=== PATIENT | female | born 1955 | race Caucasian/White ===

== ENCOUNTER 2024-12-17 11:01 | Outpatient (CLI) | payer MEDICARE, SELFPAY ==
--- OUTSIDE RECORDS SUMMARY | 2024-12-17 11:42 | XMS_ITS | Encounter Summary ---
Author Organization [facility] Healthcare Address [address] [place] [address] Care Team Providers Care Neurodiagnostic Tech Name Role Phone Min Fowler MD Primary Care Provider + Encounter Details Date Type Department Care Team (Late st Contact Info) Description 07/15/2020 Telephone [facility] - Imaging [facility] [place] [address] Transcribed Order, Provider Social History Tobacco Use Types Packs/Day Years Used Date Smoking Tobacco: Never Comments Unknown Sex and Gender Information Value Date Recorded Sex Assigned at Not on file Legal Sex Female 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
--- OUTSIDE RECORDS SUMMARY | 2024-12-17 11:42 | XMS_ITS | Referral Summary ---
Author Organization [facility] Address [address] [place] [address] Care Team Providers Care Conduit Worker Name Role Phone Min Fowler MD Primary Care Provider + Allergies Active Allergy Reactions Criticality Noted Date Comments Naproxen Other (See comments) Low 03/02/2021 Caused stomach ulceration Medications clonazePAM (KlonoPIN) 0.5 mg tablet TAKE 2 TABLETS BY MOUTH IN THE MORNING AND 1 TABLET IN THE EVENING 270 tablet 1 06/18/2024 Active Active Problems Problem Noted Date Diagnosed Date Closed fracture of left proximal humerus 021 Anxiety 05/16/2019 Polyarthritis 05/16/2019 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 Her last large episode was 02/2021 with a fall that resulted in multiple fractures of her left arm in the setting of missing her medication over a holiday weekend. She has not had any falls in the past year, and has improved in remembering to take her medication on the weekends and vacation. Does does continue to have occasional smaller startle spells when she misses a dose of clonazepam. 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 She had one large episode this year (02/2021) with a fall that resulted in multiple fractures of her left arm in the setting of missing her medication over a holiday weekend. She has continued to struggle with remembering to take her medication on the weekend, and as a result has occasional smaller startle spells. She also has smaller spells at work functions which require her to remain standing for more than 30 minutes, despite pre-medicating with an extra 0.5mg of clonazepam. Since these smaller spells may occur even when taking clonazepam and they are relatively predictable, she may be a good candidate for Cognitive behavioral therapy to develop a strategy to help abort an on-coming spell. Recommendations: - Continue to take clonazepam 1mg/0.5mg; refilled today. - Referral to OT for possible CBT in the setting of work functions. We discussed this and she was willing to try it. 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 She has been working from home due the pandemic and has less stressors. However, in the setting of missed medication due to problems obtaining refills, she has had a few small spells. However, she has restarted clonazepam and her spells are now under control. She has no side effects from the clonazepam. She has anxiety about returning to normal life and being in crowds, likely exacerbated by the recent small spells. This will likely improve with time after having just had a couple of weeks without meds. Recommendation - continue clonazepam 1mg in the morning, 0.5mg at night - follow up in [address] Babb Immunizations Immunization Administration Dates Next Due Influenza, Quadrivalent, Hig h Dose, Preservative Free, Intrr 03/04/2020 Social History Tobacco Use Types Packs/Day Years Used Date Smoking Tobacco: Never Smokeless Tobacco: Never Alcohol Use Standard Drinks/Week Comments Not Currently 0 (1 standard drink = 0.6 oz pur e alcohol) AUDIT-C Answer Date Recorded Q1: How often do you have a drink containing alc ohol? 2-4 times a month 03/02/2021 Q2: How many drinks containi ng alcohol do you have on a typical day when you are drinking? 1 or 2 03/02/2021 Q3: How often do you have si x or more drinks on one occasion? 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 Gender Identity Female 07/18/2020 8:39 AM EARTH MOVING MACHINE OPERATOR Sexual Orientation Straight 07/18/2020 8: 39 AM EARTH MOVING MACHINE OPERATOR Last Filed Vital Signs Vital Sign Reading Time Taken Comments Blood Pressure 140/84 03/05/2021 1:05 PM CDT Pulse 93 03/05/2021 12:05 PM CDT Temperature 36.8 C (98.3 F) 03/05/2021 4:15 AM CDT Respiratory Rate 21 03/05/2021 12:05 PM CDT Oxygen Saturation 85% 03/05/2021 12:05 PM CDT Inhaled Oxygen Concentration - - Weight 70.3 kg (155 lb) 02/21/2021 5:53 PM CDT Height 152.4 cm (5') 02/21/2021 3:27 PM CDT Body Mass Index 30.27 02/21/2021 3:27 PM CDT Plan of Treatment Not on file Medical Devices Implanted Type Area Pumper Hand Device Identifier Shelf Expiration Date Model / Serial / Lot Vigil & Nephew/Richco/O rtho [id number] Hole Variable Angle Lock Low Profile Humerus - [id number] Implanted:Qty: 1 on 03/04/2021 by Elzbieta Vasques MD at [facility] Left: Humerus Vigil [employer] Nephew/Richco/Or tho [id number] / / Vigil [employer] Nephew/Richco/O rtho [id number] 2.7mm 4.5mm 22mm Self Retaining Screwdriver Self Tap Flat Head - [id number] Implanted:Qty: 2 on 03/04/2021 by Elzbieta Vasques MD at [facility] Left: Humerus V[employer]il [employer] Nephew/Richco/Or tho [id number] / / Vigil [employer] Nephew/Richco/O rtho [id number] Evos 3.5mm 50mm Self Tap Lock Screw Bone Sterile - [id number] Implanted:Qty: 1 on 03/04/2021 by Elzbieta Vasques MD at [facility] Left: Humerus Vigil [employer]hew/Richco/Or tho [id number] / / Vigil [employer]hew/Richco/O rtho [id number] Evos 3.5mm 24mm Self Tap Lock Screw Bone Sterile - [id number] Implanted:Qty: 1 on 03/04/2021 by Elzbieta Vasques MD at [facility] Left: Humerus V[employer]il [employer] Nephew/Richco/Or tho [id number] / / Vigil [employer]hew/Richco/O rtho [id number] Evos 3.5mm 22mm Self Tap Lock Screw Bone Sterile - [id number] Implanted:Qty: 1 on 03/04/2021 by Elzbieta Vasques MD at [facility] Left: Humerus V[employer]il [employer]hew/Richco/Or tho [id number] / / V[employer]il [employer] Nephew/Richco/O rtho [id number] Evos 3.5mm 20mm Self Tap Lock Screw Bone Sterile - [id number] Implanted:Qty: 1 on 03/04/2021 by Elzbieta Vasqeus MD at [facility] Left: Humerus V[employer]il [employer] Nephew/Richco/Or tho [id number] / / Vigil [employer]hew/Richco/O rtho [id number] Evos 3.5mm 28mm Self Tap Lock Screw Bone Sterile - [id number] Implanted:Qty: 1 on 03/04/2021 by Elzbieta Vasques MD at [facility] Left: Humerus V[employer]il [employer] Nephew/Richco/Or tho [id number] / / Vigil [employer] Nephew/Richco/O rtho [id number] Evos 3.5mm 46mm Self Tap Lock Screw Bone Sterile - [id number] Implanted:Qty: 2 on 03/04/2021 by Elzbieta Vasques MD at [facility] Left: Humerus V[employer]il [employer]hew/Richco/Or tho [id number] / / V[employer]il [employer]hew/Richco/O rtho [id number] Evos 3.5mm 44mm Self Tap Lock Screw Bone Sterile - [id number] Implanted:Qty: 3 on 03/04/2021 by Elzbieta Vasques MD at [facility] Left: Humerus V[employer]il [employer] Nephew/Richco/Or tho [id number] / / Vigil [employer] Nephew/Richco/O rtho [id number] Evos 3.5mm 48mm Self Tap Lock Screw Bone Sterile - [id number] Implanted:Qty: 1 on 03/04/2021 by Elzbieta Vasques MD at [facility] Left: Humerus V[employer]il [employer]hew/Richco/Or tho [id number] / / Vigil [employer] Nephew/Richco/O rtho [id number] Evos 3.5mm 36mm Self Tap Lock Screw Bone Sterile - [id number] Implanted:Qty: 1 on 03/04/2021 by Elzbieta Vasques MD at [facility] Left: Humerus V[employer]il [employer] Nephew/Richco/Or tho [id number] / / Vigil [employer] Nephew/Richco/O rtho [id number] Evos 3.5mm 32mm Self Tap Lock Screw Bone Sterile - [id number] Implanted:Qty: 1 on 03/04/2021 by Elzbieta Vasques MD at [facility] Left: Humerus V[employer]il [employer] Nephew/Richco/Or tho [id number] / / Vigil [employer] Nephew/Richco/O rtho [id number] Evos 3.5mm 22mm Self Tap Cortex Screw Bone Sterile - [id number] Implanted:Qty: 1 on 03/04/2021 by Elzbieta Vasques MD at [facility] Left: Humerus V[employer]il [employer] Nephew/Richco/Or tho [id number] / / Vigil [employer] Nephew/Richco/O rtho [id number] Evos 3.5mm 34mm Self Tap Cortex Screw Bone Sterile - [id number] Implanted:Qty: 1 on 03/04/2021 by Elzbieta Vasques MD at [facility] Left: Humerus V[employer]il [employer] Nephew/Richco/Or tho [id number] / / Vigil [employer] Nephew/Richco/O rtho [id number] 2.7mm 4.5mm 20mm Self Retaining Screwdriver Self Tap Flat Head - [id number] Implanted:Qty: 1 on 03/04/2021 by Elzbieta Vasques MD at [facility] Left: Humerus V[employer]il [employer] Nephew/Richco/Or tho [id number] / / Vigil [employer] Nephew/Richco/O rtho [id number] Evos 2.7mm 4.5mm 18mm Self Tap Cortex T8 Screw Bone Nonsterile - [id number] Implanted:Qty: 1 on 03/04/2021 by Elzbieta Vasques MD at [facility] Left: Humerus V[employer]il [employer] Nephew[employer]Richco/Or tho [id number] / / Insurance MEDICARE +[id number] (Work) [id number] [place] [address] [facility] CHOICE PLUS MEDICARE Advance Directives For more information, please contact: [phone] * Full Code (Latest Code Status on File) Date Activated Date Inactivated Comments 03/04/2021 11:02 PM 03/05/2021 7:47 PM Care Teams Conduit Worker Relationship Specialty Start Date End Date Min Fowler MD [place] [place] [address] PCP - General 09/24/15
--- OUTSIDE RECORDS SUMMARY | 2024-12-17 11:42 | XMS_ITS ---
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 Babb Current Treatment and Therapy Plans No current plan information found. Past Treatment and Therapy Plans No past plan information found. Lifetime Dose Tracking * Chemical Lifetime Dose Automatic Entry Manual Entr y Fluoro Time 1.37 minutes 1.37 minutes 0 minutes Air kerma at the reference point (Ka,r) 5.79 mGy 5 .79 mGy 0 mGy
--- OUTSIDE RECORDS SUMMARY | 2024-12-17 11:42 | XMS_ITS | Clinical Summary ---
Author Organization [facility] Address [address] [place] [address] Care Team Providers Care Bellman Captain Name Role Phone Min Fowler MD Primary [...] Assessment & Plan (01/12/2023 5:06 PM CDT): Nikita Carlin has long-standing hyperekplexia which has been [...] Assessment & Plan (12/23/2021 6:22 PM CDT): Nikita Carlin has long-standing hyperekplexia which has been [...] it. 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): Ms Carlin's hyperexplexia have been stable over [...] Hig h Dose, Preservative Free, Intrr 03/04/2020 Surgical History Surgery Date Site/Laterality Comments LAPAROSCOPIC BOWEL RESECTION 06/20/2015 - 06/19/2016 Medical History Medical History Date Comments History of gastrointestinal stromal tumor (GIST) Anemia Hyperekplexia Anxiety Family History Medical History Relation Name Comments Suicide Completion Father Stroke Mother Anesthesia problems Neg Hx Relation Name Status Comments Father Mother Social History Tobacco Use Types Packs/Day Years [...] on file Legal Sex Female 4:02 AM AIRBORNE M[employer] SUPERINTENDENT Gender Identity Female 07/18/2020 8:39 AM AIRBORNE M[employer]ION [employer] SUPERINTENDENT Sexual Orientation Straight 07/18/2020 8: 39 AM AIRBORNE M[employer] SUPERINTENDENT Obstetrics History Last Filed Vital Signs Vital Sign Reading [...] 02/21/2021 3:27 PM CDT Plan of Treatment Health Maintenance Due Date Last Done Comments Breast Cancer Screening-Mammogram 1954 Colon Cancer Screening-Colonoscopy 1954 Depression Screening 1954 Hepatitis C Screening 1954 Osteoporosis Screening-Bone Density Scan 1954 DTaP/Tdap/Td Vaccine (1 - Tdap) 1965 Hepatitis B Screening 1972 Zoster Vaccine (1 of 2) 2004 Well Visit 65+ 2019 Fall Risk Assessment 03/05/2022 03/05/2021 Pneumococcal vaccine 65+ (2 of 2 - PCV) 12/11/2022 0 12/11/2021 Covid-19 Vaccine (3 - 2023- season) 2024, 09/05/2020 Influenza Vaccine (Season Ended) 2025 03/04/20 20 Medical Devices Implanted Type Area Oil Expert Device Identifier Shelf Expiration Date Model / Serial / Lot Vigil & Nephew/Richco/O rtho [id number] 15 Hole Variable Angle Lock Low Profile Humerus - [id number] Implanted:Qty: 1 on 03/04/2021 by Elzbieta Vasques MD at [facility] Left: Humerus V[employer]il [employer]hew/Richco/Or tho [id number] / / Vigil [employer] Nephew/Richco/O rtho [id number] 2.7mm 4.5mm 22mm Self Retaining Screwdriver Self Tap Flat Head - [id number] Implanted:Qty: 2 on 03/04/2021 by Elzbieta Vasques MD at [facility] Left: Humerus V[employer]il [employer] Nephew/Richco/Or tho [id number] / / Vigil [employer] Nephew/Richco/O rtho [id number] Evos 3.5mm 50mm Self Tap Lock Screw Bone Sterile - [id number] Implanted:Qty: 1 on 03/04/2021 by Elzbieta Vasques MD at [facility] Left: Humerus V[employer]il [employer] Nephew/Richco/Or tho [id number] / / Vigil [employer] Nephew/Richco/O rtho [id number] Evos 3.5mm 24mm Self Tap Lock Screw Bone Sterile - [id number] Implanted:Qty: 1 on 03/04/2021 by Elzbieta Vasques MD at [facility] Left: Humerus V[employer]il [employer] Nephew/Richco/Or tho [id number] / / Vigil [employer] Nephew/Richco/O rtho [id number] Evos 3.5mm 22mm Self Tap Lock Screw Bone Sterile - [id number] Implanted:Qty: 1 on 03/04/2021 by Elzbieta Vasques MD at [facility] Left: Humerus V[employer]il [employer] Nephew/Richco/Or tho [id number] / / Vigil And Nephew/Richco/O rtho [id number] Evos 3.5mm 20mm Self Tap Lock Screw Bone Sterile - [id number] Implanted:Qty: 1 on 03/04/2021 by Elzbieta Vasques MD at [facility] Left: Humerus V[employer]il [employer] Nephew/Richco/Or tho [id number] / / Vigil [employer] Nephew/Richco/O rtho [id number] Evos 3.5mm 28mm Self Tap Lock Screw Bone Sterile - [id number] Implanted:Qty: 1 on 03/04/2021 by Elzbieta Vasques MD at [facility] Left: Humerus V[employer]il [employer] Nephew/Richco/Or tho [id number] / / Vigil [employer] Nephew/Richco/O rtho [id number] Evos 3.5mm 46mm Self Tap Lock Screw Bone Sterile - [id number] Implanted:Qty: 2 on 03/04/2021 by Elzbieta Vasques MD at [facility] Left: Humerus Vigil [employer] Nephew/Richco/Or tho [id number] / / Vigil [employer] Nephew/Richco/O rtho [id number] Evos 3.5mm 44mm Self Tap Lock Screw Bone Sterile - [id number] Implanted:Qty: 3 on 03/04/2021 by Elzbieta Vasques MD at [facility] Left: Humerus Vigil [employer] Nephew/Richco/Or tho [id number] / / Vigil [employer] Nephew/Richco/O rtho [id number] Evos 3.5mm 48mm Self Tap Lock Screw Bone Sterile - [id number] Implanted:Qty: 1 on 03/04/2021 by Elzbieta Vasques MD at [facility] Left: Humerus Vigil [employer] Nephew/Richco/Or tho [id number] / / Vigil [employer] Nephew/Richco/O rtho [id number] Evos 3.5mm 36mm Self Tap Lock Screw Bone Sterile - [id number] Implanted:Qty: 1 on 03/04/2021 by Elzbieta Vasques MD at [facility] Left: Humerus Vigil [employer] Nephew/Richco/Or tho [id number] / / Vigil [employer] Nephew/Richco/O rtho [id number] Evos 3.5mm 32mm Self Tap Lock Screw Bone Sterile - [id number] Implanted:Qty: 1 on 03/04/2021 by Elzbieta Vasques MD at [facility] Left: Humerus Vigil [employer] Nephew/Richco/Or tho [id number] / / Vigil [employer] Nephew/Richco/O rtho [id number] Evos 3.5mm 22mm Self Tap Cortex Screw Bone Sterile - [id number] Implanted:Qty: 1 on 03/04/2021 by Elzbieta Vasques MD at [facility] Left: Humerus Vigil [employer] Nephew/Richco/Or tho [id number] / / Vigil [employer] Nephew/Richco/O rtho [id number] Evos 3.5mm 34mm Self Tap Cortex Screw Bone Sterile - [id number] Implanted:Qty: 1 on 03/04/2021 by Elzbieta Vasques MD at [facility] Left: Humerus Vigil [employer] Nephew/Richco/Or tho [id number] / / Vigil [employer] Nephew/Richco/O rtho [id number] 2.7mm 4.5mm 20mm Self Retaining Screwdriver Self Tap Flat Head - [id number] Implanted:Qty: 1 on 03/04/2021 by Elzbieta Vasques MD at [facility] Left: Humerus Vigil [employer] Nephew/Richco/Or tho [id number] / / Vigil [employer] Nephew/Richco/O rtho [id number] Evos 2.7mm 4.5mm 18mm Self Tap Cortex T8 Screw Bone Nonsterile - [id number] Implanted:Qty: 1 on 03/04/2021 by Elzbieta Vasques MD at [facility] Left: Humerus Vigil [employer] Nephew/Richco/Or tho [id number] / / Insurance [facility] Address: [address] [address] [place] [address] MEDICARE +[id number] (Work) [id number] [place] [id number] [facility] CHOICE PLUS [facility] Address: [address] [address] [place] [address] MEDICARE Advance Directives For more information, please contact: [phone] * Full Code (Latest Code Status on File) Date Activated Date Inactivated Comments 03/04/2021 11:02 PM 03/05/2021 7:47 PM Care Teams Bellman Captain Relationship Specialty Start Date End Date Min Fowler MD [address] [place], [place] [id number] PCP - General 09/24/15
[2024-12-17 12:09] LABS: Alanine Aminotransferase 24 U/L (6-35); Aspartate Amino Transferase 33 U/L (14-36)
== END 2024-12-17 11:02 | disposition home or self-care (01) ==
PROVIDERS: Visit Provider Podiatrist Foot & Ankle Surgery
DX: B35.1 Tinea unguium (principal)
CPT/HCPCS: 36415; 84450; 84460

== ENCOUNTER 2025-03-18 11:18 | Outpatient (CLI) | payer MEDICARE, SELFPAY ==
--- OUTSIDE RECORDS SUMMARY | 2025-03-18 11:57 | XMS_ITS | Clinical Summary ---
Author Organization [facility] Address [address] [place] [address] Care Team Providers Care National Van Truck Driver Name Role Phone Min Fowler MD Primary [...] it. Assessment & Plan (07/23/2020 5:46 PM OVERHEAD LINE WORKER): Ms Carlin's hyperexplexia have been stable over [...] on file Legal Sex Female 4:02 AM OVERHEAD LINE WORKER Gender Identity Female 07/18/2020 8:39 AM OVERHEAD LINE WORKER Sexual Orientation Straight 07/18/2020 8: 39 AM OVERHEAD LINE WORKER Obstetrics History Last Filed Vital Signs Vital [...] 12/11/2022 0 12/11/2021 Covid-19 Vaccine (3 - season) 2025, 09/05/2020 Influenza Vaccine (#1) 2025 03/04/2020 Medical Devices Implanted Type Area Physics Teacher Device Identifier Shelf Expiration Date Model / Serial / Lot Vigil & Nephew/Richco/O rtho [id number] 15 Hole Variable Angle Lock Low Profile Humerus - [id number] Implanted:Qty: 1 on 03/04/2021 by Elzbieta Vasques MD at [facility] Left: Humerus V[employer]il [employer] Nephew/Richco/Or tho [id number] / / Vigil [employer] Nephew/Richco/O rtho [id number] 2.7mm 4.5mm 22mm Self Retaining Screwdriver Self Tap Flat Head - [id number] Implanted:Qty: 2 on 03/04/2021 by Elzbieta Vasques MD at [facility] Left: Humerus Vigil [employer] Nephew/Richco/Or tho [id number] / / Vigil [employer] Nephew/Richco/O rtho [id number] Evos 3.5mm 50mm Self Tap Lock Screw Bone Sterile - [id number] Implanted:Qty: 1 on 03/04/2021 by Elzbieta Vasques MD at [facility] Left: Humerus Vigil [employer] Nephew/Richco/Or tho [id number] / / Vigil [employer] Nephew/Richco/O rtho [id number] Evos 3.5mm 24mm Self Tap Lock Screw Bone Sterile - [id number] Implanted:Qty: 1 on 03/04/2021 by Elzbieta Vasques MD at [facility] Left: Humerus Vigil [employer] Nephew/Richco/Or tho [id number] / / Vigil [employer] Nephew/Richco/O rtho [id number] Evos 3.5mm 22mm Self Tap Lock Screw Bone Sterile - [id number] Implanted:Qty: 1 on 03/04/2021 by Elzbieta Vasques MD at [facility] Left: Humerus Ivgil & Nephew/Richco/Or tho [id number] / / Vigil And Nephew/Richco/O rtho [id number] Evos 3.5mm 20mm Self Tap Lock Screw Bone Sterile - [id number] Implanted:Qty: 1 on 03/04/2021 by Elzbieta Vasques MD at [facility] Left: Humerus Vigil [employer] Nephew/Richco/Or tho [id number] / / Vigil And Nephew/Richco/O rtho [id number] Evos 3.5mm 28mm Self Tap Lock Screw Bone Sterile - [id number] Implanted:Qty: 1 on 03/04/2021 by Elzbieta Vasques MD at [facility] Left: Humerus Vigil [employer] Nephew/Richco/Or tho [id number] / / Vigil And Nephew/Richco/O rtho [id number] Evos 3.5mm 46mm Self Tap Lock Screw Bone Sterile - [id number] Implanted:Qty: 2 on 03/04/2021 by Elzbieta Vasques MD at [facility] Left: Humerus Vigil [employer] Nephew/Richco/Or tho [id number] / / Vigil And Nephew/Richco/O rtho [id number] Evos 3.5mm 44mm Self Tap Lock Screw Bone Sterile - [id number] Implanted:Qty: 3 on 03/04/2021 by Elzbieta Vasques MD at [facility] Left: Humerus Vigil [employer] Nephew/Richco/Or tho [id number] / / Vigil And Nephew/Richco/O rtho [id number] Evos 3.5mm 48mm Self Tap Lock Screw Bone Sterile - [id number] Implanted:Qty: 1 on 03/04/2021 by Elzbieta Vasques MD at [facility] Left: Humerus Vigil [employer] Nephew/Richco/Or tho [id number] / / Vigil And Nephew/Richco/O rtho [id number] Evos 3.5mm 36mm Self Tap Lock Screw Bone Sterile - [id number] Implanted:Qty: 1 on 03/04/2021 by Elzbieta Vasques MD at [facility] Left: Humerus Vigil [employer] Nephew/Richco/Or tho [id number] / / Vigil And Nephew/Richco/O rtho [id number] Evos 3.5mm 32mm Self Tap Lock Screw Bone Sterile - [id number] Implanted:Qty: 1 on 03/04/2021 by Elzbieta Vasques MD at [facility] Left: Humerus Vigil & Nephew/Richco/Or tho [id number] / / Vigil And Nephew/Richco/O rtho [id number] Evos 3.5mm 22mm Self Tap Cortex Screw Bone Sterile - [id number] Implanted:Qty: 1 on 03/04/2021 by Elzbieta Vasques MD at [facility] Left: Humerus Vigil & Nephew/Richco/Or tho [id number] / / Vigil And Nephew/Richco/O rtho [id number] Evos 3.5mm 34mm Self Tap Cortex Screw Bone Sterile - [id number] Implanted:Qty: 1 on 03/04/2021 by Elzbieta Vasques MD at [facility] Left: Humerus Vigil & Nephew/Richco/Or tho [id number] / / Vigil & Nephew/Richco/O rtho [id number] 2.7mm 4.5mm 20mm Self Retaining Screwdriver Self Tap Flat Head - [id number] Implanted:Qty: 1 on 03/04/2021 by Elzbieta Vasques MD at [facility] Left: Humerus Vigil & Nephew/Richco/Or tho [id number] / / Vigil & Nephew/Richco/O rtho [id number] Evos 2.7mm 4.5mm 18mm Self Tap Cortex T8 Screw Bone Nonsterile - [id number] Implanted:Qty: 1 on 03/04/2021 by Elzbieta Vasques MD at [facility] Left: Humerus Vigil [employer] Nephew/Richco/Or tho [id number] / / Insurance MEDICARE +[id number] (Work) [id number] [place] [id number] [facility] CHOICE PLUS MEDICARE Advance Directives For more information, please contact: [phone] * Full Code (Latest Code Status on File) Date Activated Date Inactivated Comments 03/04/2021 11:02 PM 03/05/2021 7:47 PM Care Teams National Van Truck Driver Relationship Specialty Start Date End Date Min Fowler MD [address] [place], [place] [id number] PCP - General 09/24/15
--- OUTSIDE RECORDS SUMMARY | 2025-03-18 11:57 | XMS_ITS | Encounter Summary ---
Author Organization [facility] Address [address] [place] [address] Care Team Providers Care Back Up Worker Name Role Phone Min Fowler MD Primary Care Provider + Encounter Details Date Type Department Care Team (Late st Contact Info) Description 07/15/2020 Telephone [facility] - Imaging [facility] [place] [address] Transcribed Order, Provider Social History Tobacco Use Types Packs/Day Years Used Date Smoking Tobacco: Never Comments Unknown Sex and Gender Information Value Date Recorded Sex Assigned at Not on file Legal Sex Female 4:02 AM PERFORMANCE IMPROVEMENT MANAGER Gender Identity Female 07/18/2020 8:39 AM PERFORMANCE IMPROVEMENT MANAGER Sexual Orientation Straight 07/18/2020 8: 39 AM PERFORMANCE IMPROVEMENT MANAGER documented as of this encounter Plan of Treatment Not on file documented as of this encounter Visit Diagnoses Not on filedocumented in this encounter Care Teams Back Up Worker Relationship Specialty Start Date End Date Min Fowler MD [place] [place] [address] PCP - General 09/24/15 documented as of this encounter
--- OUTSIDE RECORDS SUMMARY | 2025-03-18 11:57 | XMS_ITS ---
Author Organization [facility] Address [address] [place] [address] Care Team Providers Care Kiln Repairer Name Role Phone Min Fowler MD Primary [...] it. 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
[2025-03-18 17:54] LABS: Alanine Aminotransferase 13 U/L (6-35); Aspartate Amino Transferase 20 U/L (14-36)
== END 2025-03-18 11:19 | disposition home or self-care (01) ==
PROVIDERS: Visit Provider Podiatrist Foot & Ankle Surgery
DX: B35.1 Tinea unguium (principal)
CPT/HCPCS: 36415; 84450; 84460

== ENCOUNTER 2025-06-18 11:18 | Outpatient (CLI) | payer MEDICARE, SELFPAY ==
--- OUTSIDE RECORDS SUMMARY | 2025-06-18 12:05 | XMS_ITS ---
Author Organization [facility] Address [address] [place] [address] Care Team Providers Care Jazz Singer Name Role Phone Min Fowler MD Primary [...] it. 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
--- OUTSIDE RECORDS SUMMARY | 2025-06-18 12:05 | XMS_ITS | Encounter Summary ---
Author Organization [facility] Address [address] [place] [address] Care Team Providers Care Shaker Out Name Role Phone Shad Flores MD Primary Care Provider + Yan Leggett DO Primary Care Provider +1- [phone] Encounter Details Date Type Department Care Team (Late st Contact Info) Description 08/06/2024 [employer] [address] [place] [address] [facility] Provider Results Social History Tobacco Use Types Packs/Day Years Used Date Smoking Tobacco: Never Passive Smoke Exposure: Never Smokeless Tobacco: Never Alcohol Use Standard Drinks/Week Comments Yes 5 (1 standard drink = 0.6 oz pur e alcohol) not very offten PHQ-2 Answer Date Recorded Patient Health Questionnaire-2 Score 0 07/03/2024 Comments No Sex and Gender Information Value Date Recorded Sex Assigned at Female 07/03/2024 7:54 AM ACCOUNTING TECHNICIAN Legal Sex Female 6:11 PM CDT Gender Identity Not on file Sexual Orientation Not on file Travel History Travel Start Travel End [place] 05/11/2025 06/10/2025 documented as of this encounter Plan of Treatment Upcoming Encounters Date Type Department Care Team (Latest Contact Info) Description 06/24/2025 8:21 AM ACCOUNTING TECHNICIAN Hospital Encounter [facility] [address] [place] [address] Anais Corona MD [address] [facility] [place] [address] 06/24/2025 8:21 AM ACCOUNTING TECHNICIAN - 06/24/2025 8:38 AM ACCOUNTING TECHNICIAN Surgery [facility] [address] [place] [address] Anais Corona MD [address] [facility] [place] [address] CATARACT EXTRACTION PER PHACOMULSIFICATION WITH INTRAOCULAR LENS IMPLANT, RIGHT EYE 07/26/2025 8:20 AM ACCOUNTING TECHNICIAN Office Visit [facility] [address] [place] [address] Yan Leggett DO [address] [place] [address] Scheduled Procedures Name Priority Associated Diagnoses Date/Ti me CATARACT REMOVAL WITH IOL IMPLANT H25.9 AGE RELATED CATARACT, RIGHT EYE 06/24/2025 8:21 AM ACCOUNTING TECHNICIAN documented as of this encounter Visit Diagnoses Not on filedocumented in this encounter Care Teams Shaker Out Relationship Specialty Start Date End Date Shad Flores MD [address] [facility] [address] [place] [id number] PCP - General FAMILY PRACTICE 10/03/23 10/23/24 Yan Leggett DO [address] [place] [address] PCP - General FAMILY PRACTICE 10/24/24 documented as of this encounter
--- OUTSIDE RECORDS SUMMARY | 2025-06-18 12:05 | XMS_ITS | Clinical Summary ---
Author Organization [facility] Address [address] [place] [address] Care Team Providers Care Focused Factory Manager Name Role Phone Dariela Carter DO Primary Care Provider +1- [phone] Allergies Active Allergy Reactions Criticality Noted Date Comments Naproxen Other (see comment) Low 03/02/2021 Caused stomach ulceration Medications terbinafine (LAMISIL) 250 MG tablet Take 1 tablet (250 mg total) by mouth daily. 09/07/2024 Active Magnesium 400 MG Cap Take by mouth daily. Active clonazePAM (KLONOPIN) 0.5 MG tabletIndicatio ns:Anxiety Take 2 tablets in the AM and 1 tablet in the PM. Dose change. 270 tablet 04/18/2025 Active Active Problems Problem Noted Date Diagnosed Date Left hip pain 11/26/2024 Overview (12/26/2024): - left hip pain improved with Physical therapy - previous CT left hip reviewed - continue home exercise regimen (released by physical therapy) - continue Tylenol PRN - monitor for pes anserine bursitis Assessment & Plan (12/26/2024 9:41 AM CDT): - left hip pain improved with Physical therapy - previous CT left hip reviewed - continue home exercise regimen (released by physical therapy) - continue Tylenol PRN - monitor for pes anserine bursitis Assessment & Plan (11/26/2024 9:13 AM CDT): - left hip pain with extreme difficulty with ambulation - check CT left hip - continue weight bearing with assistance (crutches) - continue Tylenol PRN Elevated blood pressure reading 10/24/2024 Overview (04/02/2025): - BP 142/90, 128/86 - no history of antihypertensive use - consider starting antihypertensive therapy in future Assessment & Plan (04/02/2025 8:53 AM CDT): - BP 142/90, 128/86 - no history of antihypertensive use - consider starting antihypertensive therapy in future Assessment & Plan (11/26/2024 9:29 AM CDT): - BP 148/85, 142/88 - no history of antihypertensive use - consider starting antihypertensive therapy at next office visit Assessment & Plan (10/24/2024 9:18 AM CDT): - BP 152/90 - no history of antihypertensive use Right hip pain 10/24/2024 Overview (04/02/2025): - without inciting trauma - likely musculoskeletal due to lots of walking on recent vacation - right hip muscular spasm present on exam - established with Physical Therapy - consider future hip bursa injection Assessment & Plan (04/02/2025 8:54 AM CDT): - without inciting trauma - likely musculoskeletal due to lots of walking on recent vacation - right hip muscular spasm present on exam - established with Physical Therapy - consider future hip bursa injection Assessment & Plan (03/19/2025 8:24 AM CDT): - without inciting trauma - likely musculoskeletal due to lots of walking on recent vacation - right hip muscular spasm present on exam - Physical Therapy referral placed - consider future trigger point injection into bursa Assessment & Plan (10/24/2024 9:35 AM CDT): - without inciting trauma - likely musculoskeletal due to lots of walking on recent vacation - right hip muscular spasm present on exam - Physical Therapy referral placed - consider future trigger point injection Anxiety 05/16/2019 Overview (04/02/2025): - reports longstanding anxiety - reports symptoms - reports family history of psychiatric problems (father committed suicide) - not currently established with counseling - counseling referral placed today - also taking clonazepam BID PRN, refilled today Assessment & Plan (04/02/2025 8:22 AM CDT): - reports longstanding anxiety - reports symptoms - reports family history of psychiatric problems (father committed suicide) - not currently established with counseling - counseling referral placed today - also taking clonazepam BID PRN, refilled today Assessment & Plan (12/26/2024 10:41 AM CDT): - reports longstanding anxiety - reports symptoms - reports family history of psychiatric problems (father committed suicide) - not currently established with counseling - counseling referral placed today - also taking clonazepam BID Assessment & Plan (10/24/2024 9:22 AM CDT): - reports longstanding anxiety - reports symptoms - reports family history of psychiatric problems (father committed suicide) - not currently established with counseling - counseling referral placed today - also taking clonazepam BID Polyarthritis 05/16/2019 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 Cruzito Henriquez) - prescriber of clonazepam 0.5mg (1mg AM, 0.5mg PM[place] substance [place] Assessment & Plan (12/26/2024 10:42 AM CDT): - longstanding diagnosis - previously established with Neurology (Dr. Cruzito Henriquez) - prescriber of clonazepam 0.5mg (1mg AM, 0.5mg PM) [place] Assessment & Plan (10/24/2024 9:10 AM CDT): - longstanding diagnosis - previously established with Neurology (Dr. Cruzito Babb [facility]) - prescriber of clonazepam 0.5mg (1mg AM, 0.5mg PM) [place] need of [place] substance agreement Encounters Date Type Department Care Team Description 06/10/2025 Travel 05/07/2025 1:00 PM CUSTOMER ENGAGEMENT REPRESENTATIVE - 05/07/2025 11:59 PM CUSTOMER ENGAGEMENT REPRESENTATIVE Hospital Encounter [facility] [address] [place] [address] oCncepcion Yu, PT Dariela Cartre, DO Pain Hip/ Limb (03/29 DC ) Discharge Disposition: Home or Self Care (Routine Discharge) 05/07/2025 Travel 05/02/2025 1:00 PM CUSTOMER ENGAGEMENT REPRESENTATIVE - 05/02/2025 11:59 PM CUSTOMER ENGAGEMENT REPRESENTATIVE Hospital Encounter [facility] [address] [place] [address] Dariela Carter, Dinorah Toledo L, GENERAL MAINTENANCE HELPER Pain Hip/ Limb (02/27) Discharge Disposition: Home or Self Care (Routine Discharge) 05/02/2025 Travel 04/29/2025 12:58 PM CUSTOMER ENGAGEMENT REPRESENTATIVE - 04/29/2025 11:59 PM CUSTOMER ENGAGEMENT REPRESENTATIVE Hospital Encounter [facility] [address] [place] [address] Dariela Carter, Dinorah Toledo L, GENERAL MAINTENANCE HELPER Pain Hip/ Limb (01/27) Discharge Disposition: Home or Self Care (Routine Discharge) 04/29/2025 Travel 04/25/2025 1:00 PM CUSTOMER ENGAGEMENT REPRESENTATIVE - 04/25/2025 11:59 PM CUSTOMER ENGAGEMENT REPRESENTATIVE Hospital Encounter [facility] [address] [place] [address] Dariela Carter, Anni Toledosten L, GENERAL MAINTENANCE HELPER Pain Hip/ Limb (12/27) Discharge Disposition: Home or Self Care (Routine Discharge) 04/25/2025 Travel 04/22/2025 12:57 PM CUSTOMER ENGAGEMENT REPRESENTATIVE - 04/22/2025 11:59 PM CUSTOMER ENGAGEMENT REPRESENTATIVE Hospital Encounter [facility] [address] [place] [address] Dariela Carter, Dinorah Toledo L, GENERAL MAINTENANCE HELPER Pain Hip/ Limb (11/27) Discharge Disposition: Home or Self Care (Routine Discharge) 04/22/2025 Travel 04/18/2025 12:59 PM CDT - 04/18/2025 11:59 PM CDT Hospital Encounter [facility] [address] [place] [address] Dariela Carter, Dinorah Toledo L, GENERAL MAINTENANCE HELPER Pain Hip/ Limb (10/27) Discharge Disposition: Home or Self Care (Routine Discharge) 04/18/2025 Travel 04/17/2025 1:00 PM CDT - 04/17/2025 11:59 PM CDT Hospital Encounter [facility] [address] [place] [address] Concepcion Yu, PT Dariela Carter, DO Pain Hip/ Limb (09/27) Discharge Disposition: Home or Self Care (Routine Discharge) 04/17/2025 Telephone [facility] [address] [place] [address] Dariela Carter, Medication Problem 04/17/2025 Travel 04/04/2025 1:00 PM CDT - 04/04/2025 11:59 PM CDT Hospital Encounter [facility] [address] [place] [address] Dariela Carter, Dinorah Toledo L, GENERAL MAINTENANCE HELPER Pain Hip/ Limb (08/27) Discharge Disposition: Home or Self Care (Routine Discharge) 04/04/2025 Travel 04/02/2025 8:20 AM CDT Office Visit [facility] [address] [place] [address] Dariela Carter DO Hip Pain (Rt, follow up ) 04/01/2025 1:40 PM CDT - 04/01/2025 11:59 PM CDT Hospital Encounter [facility] [address] [place] [address] Dariela Carter, DO Dinorah Vigil L, GENERAL MAINTENANCE HELPER Pain Hip/ Limb (07/30) Discharge Disposition: Home or Self Care (Routine Discharge) 04/01/2025 Travel 03/26/2025 8:46 AM CDT - 03/26/2025 11:59 PM CDT Hospital Encounter [facility] [address] [place] [address] Concepcion Yu, PT Dariela Carter, Pain Hip/ Limb (06/29 IE ) Discharge Disposition: Home or Self Care (Routine Discharge) 03/26/2025 Travel 03/19/2025 8:45 AM CDT - 03/19/2025 11:59 PM CDT Hospital Encounter [facility] [address] [place] [address] Dariela Carter, Discharge Disposition: Home or Self Care (Routine Discharge) 03/19/2025 8:20 AM CDT Office Visit [facility] [address] [place] [address] Dariela Carter DO Groin Pain (Started 03/02/25) 03/19/2025 Results Follow-Up [facility] [address] [place] [address] Dariela Carter, XR PELVIS+RT HIP 2V 03/19/2025 Travel from Last 3 Months Immunizations Immunization Administration Dates Next Due Fluzone High Dose (IIV, trivalent, 0.5mL) 2024,03/06/2024 Fluzone High Dose - >Age 65 (Prefilled Syringe) 03/04/2020 Influenza Adult (Generic) 04/13/2022 Pneumococcal (Pneumovax 23) 12/11/2021 Family History Medical History Relation Comments Arthritis Brother 1 Heart Disease Brother 1 Hypertension Brother 1 Kidney Disease Brother 1 Arthritis Brother 2 COPD Brother 2 COPD Sister Hypertension Sister Relation Status Comments Brother 1 Brother 2 Sister Social History Tobacco Use Types Packs/Day Years Used Date Smoking Tobacco: Never Passive Smoke Exposure: Never Smokeless Tobacco: Never Tobacco Cessation:Counseling Given: No Alcohol Use Standard Drinks/Week Comments Yes 5 (1 standard drink = 0.6 oz pur e alcohol) not very offten PHQ-2 Answer Date Recorded Patient Health Questionnaire-2 Score 0 12/26/2024 Comments No Sex and Gender Information Value Date Recorded Sex Assigned at Female 07/03/2024 7:54 AM CUSTOMER ENGAGEMENT REPRESENTATIVE Legal Sex Female 6:11 PM CDT Gender Identity Not on file Sexual Orientation Not on file Travel History Travel Start Travel End [place] 05/11/2025 06/10/2025 Last Filed Vital Signs Vital Sign Reading Time Taken Comments Blood Pressure 128/86 04/02/2025 8:32 AM CDT Pulse 64 04/02/2025 8:16 AM CDT Temperature 36.7 C (98 F) 04/02/2025 8:16 AM CDT Respiratory Rate 18 04/02/2025 8:16 AM CDT Oxygen Saturation 94% 04/02/2025 8:16 AM CDT Inhaled Oxygen Concentration - - Weight 70.3 kg (155 lb) 06/10/2025 4:57 PM CUSTOMER ENGAGEMENT REPRESENTATIVE Height 152.4 cm (5') 06/10/2025 4:57 PM CUSTOMER ENGAGEMENT REPRESENTATIVE Body Mass Index 30.27 06/10/2025 4:57 PM CUSTOMER ENGAGEMENT REPRESENTATIVE Plan of Treatment Upcoming Encounters Date Type Department Care Team (Latest Contact Info) Description 06/24/2025 8:21 AM CUSTOMER ENGAGEMENT REPRESENTATIVE Hospital Encounter [facility] [address] [place] [address] Anais Corona MD [address] [place] [address] 06/24/2025 8:21 AM CUSTOMER ENGAGEMENT REPRESENTATIVE - 06/24/2025 8:38 AM CUSTOMER ENGAGEMENT REPRESENTATIVE Surgery [facility] [address] [facility] [place] [address] Anais Corona MD [address] [place] [address] CATARACT EXTRACTION PER PHACOMULSIFICATION WITH INTRAOCULAR LENS IMPLANT, RIGHT EYE 07/26/2025 8:20 AM CUSTOMER ENGAGEMENT REPRESENTATIVE Office Visit [facility] [address] [place] [address] Dariela Carter, [address] [place] [address] Scheduled Procedures Name Priority Associated Diagnoses Date/Ti me CATARACT REMOVAL WITH IOL IMPLANT H25.9 AGE RELATED CATARACT, RIGHT EYE 06/24/2025 8:21 AM CUSTOMER ENGAGEMENT REPRESENTATIVE Health Maintenance Due Date Last Done Comments Hepatitis C 1972 DTaP, Tdap and Td Vaccines (1 - Tdap) 1973 Zoster Vaccines (1 of 2) 2004 Annual Medicare Wellness Visit 2019 Dexa Scan (General) 2019 Pneumococcal Vaccine: 50+ Years (2 of 2 - PCV) 12/11/2022 12/11/2021 Mammogram Screening 10/24/2025 Postpone d from 1994 (Patient Refused) COVID-19 Vaccine ( - 2024- season) 2026 03/06/2024, 04/19/2023, 04/13/2021, Additional history exists Postponed from 02/18/2025 (Patient Refused) Colorectal Cancer Screening FIT-DNA (3 Years) 07/23/2027 07/23/2024, 07/23/2024 RSV Immunization or 60+ Years (1 - 1-dose 75+ series) 2029 Colorectal Cancer Screening Colonoscopy (10 Years) Discontinued 08/16/2014 PHQ-2 (Physician Poarch) Completed 12/26/2024 Influenza Adult Completed 04/02/2025, 02/18, 04/13/2022, Additional history exists Hepatitis A Vaccines Aged Out No long er eligible based on patient's age to complete this topic Meningococcal B Vaccine Aged Out No l onger eligible based on patient's age to complete this topic Meningococcal Vaccine Aged Out No miguel lj eligible based on patient's age to complete this topic RSV Immunizations Under 20 Months Aged Out No longer eligible based on patient's age to complete this topic Medical Devices Implanted Type Area Shipping Assistant Device Identifier Shelf Expiration Date Model / Serial / Lot Plate Plate Left: Arm Sae Sae Right: Leg Screw Screw Right: Knee Procedures Procedure Name Priority Date/Time Associated Diagnosis Comments XR PELVIS+RT HIP 2V Routine 03/19/2025 9 :00 AM CDT Right hip pain COLOGUARD (EXACT SCIENCE) Routine 07/23/2024 7:40 AM CUSTOMER ENGAGEMENT REPRESENTATIVE Colon cancer screening COLONOSCOPY GENERIC (SCAN ORDER) 08/16/2014 from Last 3 Months or Most Recently Relevant to Health Maintenance Results * XR PELVIS+RT HIP 2V (03/19/2025 9:00 AM CDT) Anatomical Region Laterality Modality Hip, Pelvis Radiographic Odalys ging 03/19/2025 9:07 AM CDT Impressions 03/19/2025 9:07 AM CDT IMPRESSION: No acute findings. Ordered By: DARIELA CARTER Interpreted By: Luis Schwab MD, 03/19/2025 9:07 AM Narrative 03/19/2025 9:[place] [address] SINGLE VIEW OF THE PELVIS AND 2 VIEWS OF THE RIGHT HIP Clinical History: Pain Comparison: None A single AP view of the pelvis and 2 views of the right hip demonstrate the bony elements to be intact. There is no evidence of fracture or dislocation. An intramedullary sae in the proximal right femur resides in the expected position. The surrounding soft tissues are within normal limits. Procedure Note Luis Schwab MD - 03/19/2025 [place] [id number] SINGLE VIEW OF THE PELVIS AND 2 VIEWS OF THE RIGHT HIP Clinical History: Pain Comparison: None A single AP view of the pelvis and 2 views of the right hip demonstratethe bony elements to be intact. There is no evidence of fracture ordislocation. An intramedullary sae in the proximal right femur resides inthe expected position. The surrounding soft tissues are within normallimits. IMPRESSION: No acute findings. Ordered By: DARIELA CARTER Interpreted By: Luis Schwab MD, 03/19/2025 9:07 AM us Dariela Carter DO GENERAL IMAGING Final Resu lt * COLOGUARD (EXACT SCIENCE) (07/23/2024 7:40 AM CUSTOMER ENGAGEMENT REPRESENTATIVE) COLOGUARD RESULT Negative Negative [employer] (CLIA #:[id number]) Comment: NEGATIVE TEST RESULT. A negative Cologuard result indicates a low likelihood that a colorectal cancer (CRC) or advanced adenoma (adenomatous polyps with more advanced pre-malignant features) is present. The chance that a person with a negative Cologuard test has a colorectal cancer is less than 1 in 1500 (negative predictive value >99.9%) or has an advanced adenoma is less than 5.3% (negative predictive value 94.7%). These data are based on a prospective cross-sectional study of 10,000 individuals at average risk for colorectal cancer who were screened with both Cologuard and colonoscopy. (Edis Michaud et al, N Engl J Med 2014;370(14):7215-9439) The normal value (reference range) for this assay is negative. COLOGUARD RE-SCREENING RECOMMENDATION: Periodic colorectal cancer screening is an important part of preventive healthcare for asymptomatic individuals at average risk for colorectal cancer. Following a negative Cologuard result, the [place] Cancer Society and U.S. Multi-Society Task Force screening guidelines recommend a Cologuard re-screening interval of 3 years. References: [place] [employer] Guideline for Colorectal Cancer Screening: https://www.cancer.org/cancer/jlgpo-cgnwnv-msobku/nqjtpmlma-gpfwyxwao-kytydmo/ac s-rec ommendations.html.; Jaylen CLARK, Nav RIDLEY, Diana PathakK, Colorectal Cancer Screening: Recommendations for Physicians and Patients from the U.S. Multi-Society Task Force on Colorectal Cancer Screening , Am J Gastroenterology 2017; 112:3373-9674. TEST DESCRIPTION: Composite algorithmic analysis of stool DNA-biomarkers with hemoglobin immunoassay. Quantitative values of individual biomarkers are not reportable and are not associated with individual biomarker result reference ranges. Cologuard is intended for colorectal cancer screening of adults of either sex, 45 years or older, who are at average-risk for colorectal cancer (CRC). Cologuard has been approved for use by the U.S. FDA. The performance of Cologuard was established in a cross sectional study of average-risk adults aged 50-84. Cologuard performance in patients ages 45 to 49 years was estimated by sub-group analysis of near-age groups. Colonoscopies performed for a positive result may find as the most clinically significant lesion: colorectal cancer [4.0%], advanced adenoma (including sessile serrated polyps greater than or equal to 1cm diameter) [20%] or non- advanced adenoma [31%]; or no colorectal neoplasia [45%]. These estimates are derived from a prospective cross-sectional screening study of 10,000 individuals at average risk for colorectal cancer who were screened with both Cologuard and colonoscopy. (Edis Germain al, N Engl J Med 2014;370(14):5474-9265.) Cologuard may produce a false negative or false positive result (no colorectal cancer or precancerous polyp present at colonoscopy follow up). A negative Cologuard test result does not guarantee the absence of CRC or advanced adenoma (pre-cancer). The current Cologuard screening interval is every 3 years. ([place] [employer] Society and U.S. Multi-Society Task Force). Cologuard performance data in a 10,000 patient pivotal study using colonoscopy as the reference method can be accessed at the following location: www.[employer]/results. Additional description of the Cologuard test process, warnings and precautions can be found at www.[employer]ogen Screeningrd.com. STOOL STOOL SPECIMEN / Unknown 07/23/2024 7:40 AM CUSTOMER ENGAGEMENT REPRESENTATIVE 07/24/2024 2:30 PM CUSTOMER ENGAGEMENT REPRESENTATIVE us Shad Flores MD BODY FLUIDS AND STOOLS O RDERABLES Final Result [employer] [address] [place] [address], [employer] (CLIA #:[id number]) [address] [place] [address] * COLONOSCOPY GENERIC (08/16/2014) 08/16/2014 Narrative 08/16/2014 Ordered by an unspecified provider. us Documents Scanned SCANNING Final Result from Last 3 Months or Most Recently Relevant to Health Maintenance Insurance MED REPLACE [facility] MEDICARE Care Teams Focused Factory Manager Relationship Specialty Start Date End Date Dariela Carter DO [address] [place] [address] PCP - General FAMILY PRACTICE 10/24/24
--- OUTSIDE RECORDS SUMMARY | 2025-06-18 12:05 | XMS_ITS | Encounter Summary ---
Author Organization [facility] Address [address] [place] [address] Care Team Providers Care Hose Cementer Name Role Phone Min Fowler MD Primary Care Provider [phone] Qiana Marmolejo NP Primary Care Provider + Royal Francis DO Primary Care Provider Shad Flores MD Primary Care Provider + Yan Leggett DO Primary Care Provider [phone] Encounter Details Date Type Department Care Team (Late st Contact Info) Description 06/10/2015 Abstract [facility] Conversion , Generic ConversionMD Social History Tobacco Use Types Packs/Day Years Used Date Smoking Tobacco: Never Assessed Comments Unknown Sex and Gender Information Value Date Recorded Sex Assigned at Female 07/03/2024 7:54 AM PUBLIC SPEAKING COACH Legal Sex Female 6:11 PM CDT Gender Identity Not on file Sexual Orientation Not on file Travel History Travel Start Travel End [place] 05/11/2025 06/10/2025 documented as of this encounter Plan of Treatment Upcoming Encounters Date Type Department Care Team (Latest Contact Info) Description 06/24/2025 8:21 AM PUBLIC SPEAKING COACH Hospital Encounter [facility] [address] [place] [address] Anais Corona MD [address] [place] [address] 06/24/2025 8:21 AM PUBLIC SPEAKING COACH - 06/24/2025 8:38 AM PUBLIC SPEAKING COACH Surgery [facility] [address] [facility], [place] [address] Anais Corona MD [address] [facility] [place] [address] CATARACT EXTRACTION PER PHACOMULSIFICATION WITH INTRAOCULAR LENS IMPLANT, RIGHT EYE 07/26/2025 8:20 AM PUBLIC SPEAKING COACH Office Visit [facility] [address] [place] [address] Yan Leggett DO [address] [place], [place] [id number] Scheduled Procedures Name Priority Associated Diagnoses Date/Ti me CATARACT REMOVAL WITH IOL IMPLANT H25.9 AGE RELATED CATARACT, RIGHT EYE 06/24/2025 8:21 AM PUBLIC SPEAKING COACH documented as of this encounter Visit Diagnoses Not on filedocumented in this encounter Care Teams Hose Cementer Relationship Specialty Start Date End Date Min Fowler MD PCP - General FAMILY PRACTICE 10/20/18 10/19/21 Qiana Marmolejo NP [address] [place] [address] [address] [place] [address] PCP - General Nurse Practitioner Family 12/18/2110/18 Royal Francis DO [address] [place] [address] [address] [place] [address] PCP - General FAMILY PRACTICE 10/20/21 12/17/21 Shad Flores MD [address] [address] [address] [place] [id number] PCP - General FAMILY PRACTICE 10/03/23 10/23/24 Yan Leggett DO [address] [place] [address] PCP - General FAMILY PRACTICE 10/24/24 documented as of this encounter
--- OUTSIDE RECORDS SUMMARY | 2025-06-18 12:05 | XMS_ITS | Clinical Summary ---
Author Organization [facility] Address [address] [place] [address] Care Team Providers Care Dials Inspector Name Role Phone Min Fowler MD Primary [...] it. 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 [...] on file Legal Sex Female 4:02 AM CABLE STRETCHER AND TESTER Gender Identity Female 07/18/2020 8:39 AM CABLE STRETCHER AND TESTER Sexual Orientation Straight 07/18/2020 8: 39 AM CABLE STRETCHER AND TESTER Last Filed Vital Signs Vital Sign Reading [...] 65+ (2 of 2 - PCV) 12/11/2022 12/11/2021 Covid-19 Vaccine (3 - 2024-2 6 season) 2025 10/03/2020, 09/05/2020 Influenza Vaccine Completed 04/02/2025, , 04/13/2022, Additional history exists Medical Devices Implanted Type Area Front Office Assistant Device Identifier Shelf Expiration Date Model / Serial / Lot [employer]O rtho [id number] Hole Variable Angle Lock Low Profile Humerus - [id number] Implanted:Qty: 1 on 03/04/2021 by Elzbieta Vasques MD at [facility] Left: Humerus [employer]/Or tho [id number] / / [employer] rtho [id number] 2.7mm 4.5mm 22mm Self Retaining Screwdriver Self Tap Flat Head - [id number] Implanted:Qty: 2 on 03/04/2021 by Elzbieta Vasques MD at [facility] Left: Humerus [employer]Or tho [id number] / / [employer] rtho [id number] Evos 3.5mm 50mm Self Tap Lock Screw Bone Sterile - [id number] Implanted:Qty: 1 on 03/04/2021 by Elzbieta Vasques MD at [facility] Left: Humerus [employer]Or tho [id number] / / [employer] rtho [id number] Evos 3.5mm 24mm Self Tap Lock Screw Bone Sterile - [id number] Implanted:Qty: 1 on 03/04/2021 by Elzbieta Vasques MD at [facility] Left: Humerus [employer]Or tho [id number] / / [employer]o [id number] Evos 3.5mm 22mm Self Tap Lock Screw Bone Sterile - [id number] Implanted:Qty: 1 on 03/04/2021 by Elzbieta Vasques MD at [facility] Left: Humerus [employer]Or tho [id number] / / [employer]tho [id number] Evos 3.5mm 20mm Self Tap Lock Screw Bone Sterile - [id number] Implanted:Qty: 1 on 03/04/2021 by Elzbieta Vasques MD at [facility] Left: Humerus [employer]Or tho [id number] / / [employer] [id number] Evos 3.5mm 28mm Self Tap Lock Screw Bone Sterile - [id number] Implanted:Qty: 1 on 03/04/2021 by Elzbieta Vasques MD at [facility] Left: Humerus [employer]Or tho [id number] / / [employer] rtho [id number] Evos 3.5mm 46mm Self Tap Lock Screw Bone Sterile - [id number] Implanted:Qty: 2 on 03/04/2021 by Elzbieta Vasques MD at [facility] Left: Humerus [employer]Or tho [id number] / / [employer] rtho [id number] Evos 3.5mm 44mm Self Tap Lock Screw Bone Sterile - [id number] Implanted:Qty: 3 on 03/04/2021 by Elzbieta Vasques MD at [facility] Left: Humerus [employer]Or tho [id number] / / [employer]O rtho [id number] Evos 3.5mm 48mm Self Tap Lock Screw Bone Sterile - [id number] Implanted:Qty: 1 on 03/04/2021 by Elzbieta Vasques MD at [facility] Left: Humerus [employer]Or tho [id number] / / [employer]O rtho [id number] Evos 3.5mm 36mm Self Tap Lock Screw Bone Sterile - [id number] Implanted:Qty: 1 on 03/04/2021 by Elzbieta Vasques MD at [facility] Left: Humerus [employer]Or tho [id number] / / [employer] rtho [id number] Evos 3.5mm 32mm Self Tap Lock Screw Bone Sterile - [id number] Implanted:Qty: 1 on 03/04/2021 by Elzbieta Vasques MD at [facility] Left: Humerus [employer]Or tho [id number] / / [employer] rtho [id number] Evos 3.5mm 22mm Self Tap Cortex Screw Bone Sterile - [id number] Implanted:Qty: 1 on 03/04/2021 by Elzbieta Vasques MD at [facility] Left: Humerus [employer]Or tho [id number] / / [employer]/O rtho [id number] Evos 3.5mm 34mm Self Tap Cortex Screw Bone Sterile - [id number] Implanted:Qty: 1 on 03/04/2021 by Elzbieta Vasques MD at [facility] Left: Humerus [employer]Or tho [id number] / / [employer] r[employer]o [id number] 2.7mm 4.5mm 20mm Self Retaining Screwdriver Self Tap Flat Head - [id number] Implanted:Qty: 1 on 03/04/2021 by Elzbieta Vasques MD at [facility] Left: Humerus [employer]Or tho [id number] / / [employer] rtho [id number] Evos 2.7mm 4.5mm 18mm Self Tap Cortex T8 Screw Bone Nonsterile - [id number] Implanted:Qty: 1 on 03/04/2021 by Elzbieta Vasques MD at [facility] Left: Humerus [employer]Or tho [id number] / / Insurance [facility] [employer] [employer] [id number] (Work) [address] [place] [address] [facility] [employer] Advance Directives For more information, please contact: [phone] * Full Code (Latest Code Status on File) Date Activated Date Inactivated Comments 03/04/2021 11:02 PM 03/05/2021 7:47 PM Care Teams Dials Inspector Relationship Specialty Start Date End Date Min Fowler MD [address] [place], [place] [id number] PCP - General 09/24/15
--- OUTSIDE RECORDS SUMMARY | 2025-06-18 12:05 | XMS_ITS | Encounter Summary ---
Author Organization [facility] Address [address] [place] [address] Care Team Providers Care Avionics System Engineer Name Role Phone Min Fowler MD Primary Care Provider + Encounter Details Date Type Department Care Team (Late st Contact Info) Description 07/15/2020 Telephone [facility] - Imaging [facility] [place] [address] Transcribed Order, Provider Social History Tobacco Use Types Packs/Day Years Used Date Smoking Tobacco: Never Comments Unknown Sex and Gender Information Value Date Recorded Sex Assigned at Not on file Legal Sex Female 4:02 AM FRONT DESK HOST Gender Identity Female 07/18/2020 8:39 AM FRONT DESK HOST Sexual Orientation Straight 07/18/2020 8: 39 AM FRONT DESK HOST documented as of this encounter Plan of Treatment Not on file documented as of this encounter Visit Diagnoses Not on filedocumented in this encounter Care Teams Avionics System Engineer Relationship Specialty Start Date End Date Min Fowler MD [address] [place] [address] PCP - General 09/24/15 documented as of this encounter
--- OUTSIDE RECORDS SUMMARY | 2025-06-18 12:05 | XMS_ITS | Encounter Summary ---
Author Organization [facility] Address [address] [place] [address] Care Team Providers Care Lens Mounter Name Role Phone Shad Flores MD Primary Care Provider + Yan Leggett DO Primary Care Provider [phone] Encounter Details Date Type Department Care Team (Late st Contact Info) Description 04/30/2024 [employer] Message Enc [facility] Medical Group Family Medicine [facility] [address] [place] [address] [facility] Provider Screening Social History Tobacco Use Types Packs/Day Years Used Date Smoking Tobacco: Never Passive Smoke Exposure: Never Smokeless Tobacco: Never Alcohol Use Standard Drinks/Week Comments Yes 6.7 (1 standard drink = 0.6 oz p ure alcohol) not very offten PHQ-2 Answer Date Recorded Patient Health Questionnaire-2 Score 0 12/06/2023 Comments No Sex and Gender Information Value Date Recorded Sex Assigned at Female 07/03/2024 7:54 AM SHEARER HELPER Legal Sex Female 6:11 PM CDT Gender Identity Not on file Sexual Orientation Not on file Travel History Travel Start Travel End [place] 05/11/2025 06/10/2025 documented as of this encounter Plan of Treatment Upcoming Encounters Date Type Department Care Team (Latest Contact Info) Description 06/24/2025 8:21 AM SHEARER HELPER Hospital Encounter [facility] [address] [facility] [address] Anais Corona MD [address] [place] [address] 06/24/2025 8:21 AM SHEARER HELPER - 06/24/2025 8:38 AM SHEARER HELPER Surgery [facility] [address] [place] [address] Anais Corona MD [address] [facility] [address] [facility] [place] [address] CATARACT EXTRACTION PER PHACOMULSIFICATION WITH INTRAOCULAR LENS IMPLANT, RIGHT EYE 07/26/2025 8:20 AM SHEARER HELPER Office Visit [facility] [address] [place] [address] Yan Leggett DO [address] [place], [place] [address] Scheduled Procedures Name Priority Associated Diagnoses Date/Ti me CATARACT REMOVAL WITH IOL IMPLANT H25.9 AGE RELATED CATARACT, RIGHT EYE 06/24/2025 8:21 AM SHEARER HELPER documented as of this encounter Visit Diagnoses Not on filedocumented in this encounter Care Teams Lens Mounter Relationship Specialty Start Date End Date Shad Flores MD [address] [facility] [address] [place] [id number] PCP - General FAMILY PRACTICE 10/03/23 10/23/24 Yan Leggett DO [address] [place] [address] PCP - General FAMILY PRACTICE 10/24/24 documented as of this encounter
[2025-06-18 12:35] LABS: Alanine Aminotransferase 14 U/L (6-35); Aspartate Amino Transferase 30 U/L (14-36)
== END 2025-06-18 11:19 | disposition home or self-care (01) ==
PROVIDERS: Visit Provider Podiatrist Foot & Ankle Surgery
DX: B35.1 Tinea unguium (principal)
CPT/HCPCS: 36415; 84450; 84460